=== PATIENT | female | born 1990 ===

== ENCOUNTER 2022-07-15 07:14 | Inpatient (IN) | payer OTHER ==
[~2022-07-15] VITALS: Ht 162.6 cm; Wt 84.4 kg
[2022-07-15] MEDS ORDERED: PRENATAL + DHA1 EAC1 PO (09:54)
== END 2022-07-17 16:51 | disposition home or self-care (01) | DRG 807 ==
LOC: LDR 07:14 → OB/GYN 23:58
PROVIDERS: ADMIT Obstetrics & Gynecology; ATTEND Obstetrics & Gynecology
PROC: 10E0XZZ Delivery of Products of Conception, External Approach (ICD-10-PCS; principal; 2022-07-15)
PROC: 4A1HXCZ Monitoring of Products of Conception, Cardiac Rate, External Approach (ICD-10-PCS; 2022-07-15)
DX: O80 Encounter for full-term uncomplicated delivery (principal); Z37.0 Single live birth; Z3A.39 39 weeks gestation of pregnancy; Z20.822 Contact with and (suspected) exposure to COVID-19